=== PATIENT | female | born 1985 | race Hispanic/Latino ===

== ENCOUNTER → 2018-01-28 | Outpatient (REF) | payer OTHER ==
[2018-01-31 14:14] LABS: HPV HYBRID CAPTURE II Negative (Negative)
== END ==
LOC: M LAB REF 18:05
DX: Z12.4 Encounter for screening for malignant neoplasm of cervix (principal)
CPT/HCPCS: 88142

== ENCOUNTER → 2018-09-19 | Outpatient (CLI) | payer OTHER ==
[2018-09-19 14:36] LABS: BASO # 0.1 10^3/uL (0.0-0.2); BASO % 0.7 % (0.0-1.0); EOS # 0.1 10^3/uL (0.0-0.50); HEMATOCRIT 44.3 % (36.0-47.0); HEMOGLOBIN 14.3 g/dl (12.0-15.5); IMMATURE GRANULOCYTE % 0.1 % (0-3.0); LYMPH # 2.2 10^3/uL (1.5-4.5); LYMPH % 32.2 % (24.0-44.0); MEAN CORPUSCULAR HEMOGLOBIN 28.9 pg (27.0-33.0); MEAN CORPUSCULAR HGB CONC 32.3 g/dl (32.0-36.5); MEAN CORPUSCULAR VOLUME 89.5 fl (80.0-96.0); MONO # 0.4 10^3/uL (0.0-0.8); MONO % 6.6 % (0.0-5.0); NEUTROPHILS % 59.4 % (36.0-66.0); PLATELET COUNT, AUTOMATED 240 10^3/uL (150-450); RED BLOOD COUNT 4.95 10^6/uL (4.00-5.40); RED CELL DISTRIBUTION WIDTH 12.8 % (11.5-14.5); WHITE BLOOD COUNT 6.7 10^3/uL (4.0-10.0)
[2018-09-19 14:48] LABS: ALKALINE PHOSPHATASE 109 U/L (45-117); ALT/SGPT 38 U/L (12-78); ANION GAP 7 MEQ/L (8-16); AST/SGOT 20 U/L (7-37); BILIRUBIN,TOTAL 0.4 MG/DL (0.2-1.0); BLOOD UREA NITROGEN 14 MG/DL (7-18); CALCIUM LEVEL 8.9 MG/DL (8.5-10.1); CARBON DIOXIDE LEVEL 28 MEQ/L (21-32); CHLORIDE LEVEL 105 MEQ/L (98-107); CHOLESTEROL LEVEL 163 MG/DL (<200); CHOLESTEROL RISK RATIO 3.134 (<5); FREE T4 1.08 NG/DL (0.76-1.46); GLOMERULAR FILTRATION RATE > 60.0 (>60); GLUCOSE, FASTING 84 MG/DL (70-100); HDL CHOLESTEROL 52 MG/DL (>40); LDL CHOLESTEROL 100 MG/DL (<100); NON-HDL-C 111 MG/DL; POTASSIUM SERUM 4.5 MEQ/L (3.5-5.1); SODIUM LEVEL 140 MEQ/L (136-145); TRIGLYCERIDES LEVEL 55 MG/DL (<150)
[2018-09-19 14:54] LABS: ESTIMATED AVERAGE GLUCOSE 111 MG/DL (60-110); HEMOGLOBIN A1c 5.5 %
== END ==
LOC: M SMT 08:07
DX: Z86.32 Personal history of gestational diabetes (principal); E66.9 Obesity, unspecified
CPT/HCPCS: 84443

== ENCOUNTER → 2019-03-10 | Outpatient (REF) | payer OTHER ==
[~2019-03-10] MED LIST: ANUS2.5C2 EXT; DOCU5LIQ PO; IBUP100S44 PO; MAPA500T17 PO; MOM30SS PO; PRENTAB66 PO
== END ==
LOC: M LAB REF 17:54
PROVIDERS: ATTEND Advanced Practice Midwife
DX: Z12.4 Encounter for screening for malignant neoplasm of cervix (principal)

== ENCOUNTER → 2019-07-14 | Outpatient (CLI) | payer OTHER ==
--- NOTE | 2019-07-14 19:14 | REP ---
CERVICAL SPINE, AP AND LATERAL: AP and lateral views of the cervical spine are performed. There is no compression fracture seen. Alignment of cervical vertebral bodies is maintained. There is slight reversal of the normal cervical lordosis which may be positional. There is no prevertebral soft-tissue swelling. Disc spaces appear well preserved. IMPRESSION: No fracture and no significant arthritic change. Electronically Signed by Armando Marino MD 07/16/2019 09:58 A
--- NOTE | 2019-07-14 19:16 | REP ---
THORACIC SPINE, TWO VIEWS: AP and lateral views of the thoracic spine are performed. There is no compression fracture. There is normal thoracic kyphosis. I do not see significant arthritic change. The posterior elements are intact. There is mild curvature of the thoracolumbar spine convex to the left. IMPRESSION: Mild curvature of the thoracolumbar spine convex to the left without other significant finding. Electronically Signed by Armando Marino MD 07/16/2019 09:58 A
--- NOTE | 2019-07-14 19:19 | REP ---
LUMBOSACRAL SPINE, AP AND LATERAL: Three AP and lateral views of the lumbosacral spine are performed. There is no compression fracture. There does appear to be spondylolysis at L5 with mild anterior grade 1 spondylolisthesis of L5 on S1. A degree of anterolisthesis is about 7 mm. There is minimal narrowing at the L4-5 disc space. There is mild curvature of the thoracolumbar spine convex to the left. 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 Minimal disc space narrowing L4-5. Electronically Signed by Armando Marino MD 07/16/2019 09:58 A
== END ==
LOC: M WUC 11:55
PROVIDERS: ATTEND Chiropractor
DX: M43.17 Spondylolisthesis, lumbosacral region (principal); M51.36 Other intervertebral disc degeneration, lumbar region; M54.11 Radiculopathy, occipito-atlanto-axial region; M99.01 Segmental and somatic dysfunction of cervical region

== ENCOUNTER 2022-02-05 23:30 | Emergency (ER) | payer OTHER ==
[~2022-02-05] VITALS: Ht 157.5 cm; Wt 75.0 kg
[2022-02-05 23:30] VITALS: BP 146/88
[2022-02-05] MEDS ORDERED: OMEP10CASR PO (23:43)
[2022-02-05] MEDS ORDERED: CYCL-707 PO (23:43)
== END 2022-02-06 00:08 | disposition left against medical advice (07) ==
LOC: M ED 23:30
DX: Z53.21 Procedure and treatment not carried out due to patient leaving prior to being seen by health care provider (principal)

== ENCOUNTER → 2022-05-25 | Outpatient (CLI) | payer BC, OTHER, SELFPAY ==
[~2022-05-25] MED LIST changes: +AMPH1CAP15 PO; +CETI5TAB5 PO; +CYCL-707 PO; +OMEP10CASR PO
== END ==
LOC: M LABSMTC 09:16
PROVIDERS: ATTEND Anesthesiology
DX: Z01.818 Encounter for other preprocedural examination (principal); Z11.52 Encounter for screening for COVID-19

== ENCOUNTER 2022-05-30 07:49 | Day surgery (SDC) | payer OTHER, SELFPAY ==
[~2022-05-30] VITALS: Ht 157.5 cm; Wt 75.0 kg
[2022-05-30] MEDS ORDERED: LR 1,000 ML IV SCH ×2 (08:00→10:20)
[2022-05-30] MEDS ORDERED: MIDAZOLAM INJ 2MG/2ML VIAL (J2250 PER 1MG) As Ordered ONE (08:53)
[2022-05-30] MEDS ORDERED: ROCURONIUM BROMIDE 50 MG/5 ML VIAL As Ordered ONE (08:54)
[2022-05-30] MEDS ORDERED: fentaNYL 100 MCG/2 ML INJECTION As Ordered ONE (08:54)
[2022-05-30] MEDS ORDERED: dexameTHASONE 4 MG/ML 1ML VIAL (J1100 PER 1MG) As Ordered ONE (08:56)
[2022-05-30] MEDS ORDERED: propofoL 200 MG/20 ML VIAL As Ordered ONE ×2 (08:56→09:50)
[2022-05-30] MEDS ORDERED: BUPIVACAINE/EPIN 0.25% 30 ML VIAL As Ordered ONE (09:15)
[2022-05-30] MEDS ORDERED: ceFAZolin 2 GM/D5W 50 ML IV BAG (J0690 PER 500MG) As Ordered ONE (09:50)
[2022-05-30] MEDS ORDERED: ACETAMINOPHEN 1000MG 100ML IV BTL (OFIRMEV) (J0131 PER 10MG) As Ordered ONE (09:50)
[2022-05-30] MEDS ORDERED: LABETALOL 100MG/20ML VIAL As Ordered ONE (09:53)
[2022-05-30] MEDS ORDERED: PHENYLephrine 500MCG 5ML (100MCG/ML) SYRINGE As Ordered ONE (09:55)
[2022-05-30] MEDS ORDERED: SUGAMMADEX SODIUM 500 MG/5 ML VIAL (BRIDION) As Ordered ONE (10:09)
[2022-05-30] MEDS ORDERED: LIDOCAINE 2% 100MG/5ML SDV (FOR ANES.) As Ordered ONE (10:09)
[2022-05-30] MEDS ORDERED: ONDANSETRON 4MG 2ML VIAL As Ordered ONE (10:14)
[2022-05-30] MEDS ORDERED: KETOROLAC 60MG 2ML VIAL As Ordered ONE (10:15)
[2022-05-30] MEDS ORDERED: HYDROmorphone HCL 2MG/ML 1ML VIAL As Ordered ONE (10:19)
[2022-05-30] MEDS ORDERED: fentaNYL 100 MCG/2 ML INJECTION IV PRN (10:20)
[2022-05-30] MEDS ORDERED: ONDANSETRON 4MG 2ML VIAL IV PRN (10:20)
[2022-05-30] MEDS ORDERED: NS 1,000 ML IV SCH (10:35)
[2022-05-30] MEDS: oxyCODONE 5MG TAB PO PRN ×2 (11:10→11:42)
[2022-05-30 11:57] VITALS: BP 139/83
== END 2022-05-30 12:32 | disposition home or self-care (01) ==
LOC: M SDC 07:49
PROVIDERS: ATTEND Surgery
DX: K80.10 Calculus of gallbladder with chronic cholecystitis without obstruction (principal); F90.9 Attention-deficit hyperactivity disorder, unspecified type; R87.619 Unspecified abnormal cytological findings in specimens from cervix uteri; J30.9 Allergic rhinitis, unspecified
CPT/HCPCS: 47562; 81025; 88304; J0131; J0690; J1100; J1170; J1885; J2250; J2370; J2405; J3010